=== PATIENT | male | born 1935 | race African-American/Black ===

== ENCOUNTER → 2019-01-17 | Outpatient (CLI) | payer MEDICARE ==
[2019-01-17 09:52] LABS: BILIRUBIN,URINE NEGATIVE (NEGATIVE); UROBILINOGEN,URINE NORMAL (NEGATIVE)
[2019-01-17 10:11] LABS: APPEARANCE,URINE CLEAR (CLEAR); UA COLOR YELLOW (YELLOW)
== END | disposition home or self-care (01) ==
LOC: NPLAB 09:24
PROVIDERS: ATTEND Internal Medicine
DX: N39.0 Urinary tract infection, site not specified (principal)
CPT/HCPCS: 81000; 87086

== ENCOUNTER → 2020-02-03 | Outpatient (CLI) | payer MEDICAID ==
[2020-02-03 11:07] LABS: BILIRUBIN,URINE NEGATIVE (NEGATIVE); UROBILINOGEN,URINE NORMAL (NEGATIVE)
[2020-02-03 11:10] LABS: APPEARANCE,URINE CLOUDY (CLEAR); UA COLOR YELLOW (YELLOW)
== END | disposition home or self-care (01) ==
LOC: NPLAB 10:52
PROVIDERS: ATTEND Internal Medicine
DX: N39.0 Urinary tract infection, site not specified (principal); R31.9 Hematuria, unspecified
CPT/HCPCS: 81000; 87077; 87086; 87186